=== PATIENT | female | born 1990 | race African-American/Black ===

== ENCOUNTER 2017-11-15 00:03 | Emergency (ER) | payer OTHER ==
[~2017-11-15] VITALS: Ht 165.1 cm; Wt 122.5 kg
--- NOTE | ~2017-11-15 | EKG ---
[address] [place] [address] ELECTROCARDIOGRAM REPORT Name: VIKRAM KELLEY 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
[2017-11-15] MEDS ORDERED: AMOXICILLIN 50500 M1 PO (02:29)
[2017-11-15] MEDS ORDERED: GUAIFEN-CODEINE10 ML PO (02:29)
[2017-11-15 04:05] VITALS: BP 113/59
== END 2017-11-15 04:10 | disposition home or self-care (01) ==
LOC: ER 00:03
DX: J06.9 Acute upper respiratory infection, unspecified (principal); H66.92 Otitis media, unspecified, left ear; F17.210 Nicotine dependence, cigarettes, uncomplicated